=== PATIENT | female | born 1975 | race African-American/Black ===

== ENCOUNTER 2022-01-17 10:00 | Outpatient (CLI) | payer BC | END 2022-01-17 10:01 | disposition home or self-care (01) | LOC: CSHMAMMO 10:00 | PROVIDERS: ATTEND Family Medicine | DX: Z12.31 Encounter for screening mammogram for malignant neoplasm of breast (principal); Z80.3 Family history of malignant neoplasm of breast | CPT/HCPCS: 77063; 77067 ==

== ENCOUNTER 2023-04-16 12:22 | Outpatient (CLI) | payer BC | END 2023-04-16 12:23 | disposition home or self-care (01) | LOC: CSHMAMMO 12:22 | PROVIDERS: ATTEND Family Medicine | DX: Z12.31 Encounter for screening mammogram for malignant neoplasm of breast (principal); Z80.3 Family history of malignant neoplasm of breast | CPT/HCPCS: 77063; 77067 ==

== ENCOUNTER 2024-05-29 12:23 | Outpatient (CLI) | payer BC | END 2024-05-29 12:24 | disposition home or self-care (01) | LOC: CSHMAMMO 12:23 | PROVIDERS: ATTEND Family Medicine | DX: Z12.31 Encounter for screening mammogram for malignant neoplasm of breast (principal); Z80.3 Family history of malignant neoplasm of breast | CPT/HCPCS: 77063; 77067 ==